=== PATIENT | female | born 1995 | race African-American/Black ===

== ENCOUNTER 2019-04-11 06:07 | Inpatient (IN) ==
[2019-04-11] MEDS ORDERED: MEPERIDINE 50 MG/1 ML VIAL IV PRN (07:39)
[2019-04-11] MEDS ORDERED: ONDANSETRON 4 MG/2 ML VIAL IV PRN (07:39)
[2019-04-11] MEDS ORDERED: BUTORPHANOL 2 MG/ML VIAL IV PRN (07:39)
[2019-04-11 07:57] LABS: Hematocrit 37.9 VOL% (35.7-47.0); Hemoglobin 12.6 GM/DL (12.0-16.0); Red Blood Count 4.38 MC/CUMM (3.8-5.5); White Blood Count 10.4 T/CUMM (4-12)
[2019-04-11 07:58] LABS: Basophils % 0.2 % (0.0-0.8); Eosinophils # 0.1 10*3/uL (0.0-0.87); Eosinophils % 0.5 % (0.00-10.9); Immature Granulocytes % 1.8 %; Immature Granulocytes Absolute 0.19 #; Lymphocytes # 1.8 10*3/uL (1.4-4.0); Lymphocytes % 17.1 % (21.3-54.2); Mean Corpuscular HGB Conc 33.2 GM/DL (32-36); Mean Corpuscular Volume 86.5 FL (87-102); Mean Platelet Volume 10.4 FL (9.6-12.0); Monocytes % 9.8 % (1.7-12.7); Neutrophils % 70.6 % (38.7-73.9); Platelet Count 236 T/CUMM (130-400); Red Cell Distribution Width 12.8 % (9.3-17.3)
[2019-04-11 08:23] LABS: Alanine Aminotransferase 15 U/L (13-56); Albumin 2.5 G/DL (3.4-5.0); Alkaline Phosphatase 125 U/L (45-117); Aspartate Amino Transferase 11 U/L (0-37); Bilirubin,Total < 0.39 MG/DL (0.2-1.0); Blood Urea Nitrogen 7 MG/DL (7-18); Calcium 9.1 MG/DL (8.5-10.1); Estimated Glom Filtration Rate 183 ML/MIN; Glucose 100 MG/DL (74-106); Osmolality,Calculated 267.1 MOS/KG (273-304); Total Protein 7.7 G/DL (6.4-8.3)
[2019-04-11] MEDS ORDERED: LACTATED RINGERS 1,000 ML IV ONE (18:48)
[2019-04-11] MEDS ORDERED: OXYTOCIN/LR 20 UNIT/1,000 ML BAG IV ONE ×2 (19:35→23:04)
[2019-04-11] MEDS ORDERED: CITRIC ACID/SODIUM CITRATE 30 ML UDCUP PO ONE (19:35)
[2019-04-11] MEDS ORDERED: FAMOTIDINE 20 MG/2 ML VIAL IV ONE (19:35)
[2019-04-11] MEDS ORDERED: ceFAZolin 3,000 MG in SYRINGE 1 EACH IV ONE (19:36)
[2019-04-11] MEDS ORDERED: LACTATED RINGERS 1,000 ML IV SCH ×2 (20:00→22:00)
[2019-04-11] MEDS ORDERED: BUPIVACAINE 0.5% 50 ML VIAL ONE (20:19)
[2019-04-11] MEDS ORDERED: BUPIVACAINE SPINAL 0.75% 2 ML AMP SPINAL ONE (20:19)
[2019-04-11] MEDS ORDERED: DEXAMETHASONE 4 MG/1 ML VIAL ONE (20:19)
[2019-04-11] MEDS ORDERED: EPINEPHrine 1 MG/ML VIAL ONE (20:19)
[2019-04-11] MEDS ORDERED: METHYLERGONOVINE 0.2 MG/1 ML AMP IM ONE (21:20)
[2019-04-11] MEDS ORDERED: METHYLERGONOVINE 0.2 MG/1 ML AMP ONE (21:20)
[2019-04-11] MEDS ORDERED: CARBOPROST TROMETHAMINE 250 MCG/ML AMP IM ONE (21:21)
[2019-04-11] MEDS ORDERED: RHO(D) IMMUNE GLOBULIN 300 MCG SYRINGE IM ONE (21:52)
[2019-04-11] MEDS ORDERED: ACETAMINOPHEN 325 MG TABLET PO PRN (21:52)
[2019-04-11] MEDS ORDERED: ceFAZolin 1,000 MG in SYRINGE 1 EACH IV SCH (22:00)
[2019-04-11] MEDS ORDERED: fentaNYL 100 MCG/2 ML VIAL ONE (22:18)
[2019-04-11] MEDS ORDERED: MORPHINE 10 MG/10 ML VIAL ONE (22:18)
[2019-04-11] MEDS ORDERED: PHENYLEPHRINE 1 MG/10 ML SYRINGE IV ONE (22:19)
[2019-04-11] MEDS ORDERED: LIDOCAINE 2% 5 ML VIAL ONE (22:22)
[2019-04-11 22:43] LABS: Apearance,Urine CLEAR (Clear); Bilirubin,Urine Negative (Negative); Blood, Urine Negative (Negative); Glucose,Urine (UA) Negative (Negative); Ketones,Urine Negative (Negative); Mucus,Urine Occasional /LPF (Occasional); Nitrite,Urine Negative (Negative); Protein,Urine Negative; RBC,Urine <1 /HPF (0-4); Squamous Epithelial Cell,Urine Occasional /HPF (0-10); Urine Color Yellow (Yellow); Urine Specific Gravity 1.024 (1.001-1.035); WBC,Urine <1 /HPF (0-6)
[2019-04-12] MEDS: diphenhydrAMINE 50 MG/1 ML VIAL IV PRN ×2 (04:06→09:23)
[2019-04-12] MEDS: oxyCODONE/ACETAMINOPHEN 5-325 MG TABLET PO PRN ×3 (05:13→18:42)
[2019-04-12 05:18] LABS: Basophils % 0.1 % (0.0-0.8); Eosinophils % 0.1 % (0.00-10.9); Hematocrit 36.7 VOL% (35.7-47.0); Hemoglobin 12.1 GM/DL (12.0-16.0); Immature Granulocytes % 1.2 %; Lymphocytes # 1.1 10*3/uL (1.4-4.0); Lymphocytes % 6.7 % (21.3-54.2); Mean Corpuscular Volume 87.4 FL (87-102); Mean Platelet Volume 10.6 FL (9.6-12.0); Monocytes % 6.9 % (1.7-12.7); Platelet Count 226 T/CUMM (130-400); Red Cell Distribution Width 12.9 % (9.3-17.3); White Blood Count 16.6 T/CUMM (4-12)
[2019-04-12] MEDS: ceFAZolin 1,000 MG in SYRINGE 1 EACH IV SCH ×2 (06:14→14:50)
[2019-04-12] MEDS: MULTIVITAMIN (PRENATAL) TABLET PO SCH (08:32)
[2019-04-12] MEDS: DOCUSATE SODIUM 100 MG CAPSULE PO SCH ×2 (08:32→21:03)
[2019-04-12] MEDS ORDERED: ceFAZolin 1,000 MG in SYRINGE 1 EACH IV SCH (15:00)
[2019-04-12] MEDS: SIMETHICONE CHEW 80 MG TABLET PO PRN (21:03)
[2019-04-12] MEDS: MAGNESIUM HYDROXIDE SUSP 30 ML UDCUP PO PRN (21:03)
[2019-04-13] MEDS: IBUPROFEN 800 MG TABLET PO PRN ×2 (02:25→14:23)
[2019-04-13] MEDS: oxyCODONE/ACETAMINOPHEN 5-325 MG TABLET PO PRN ×2 (02:25→14:26)
[2019-04-13] MEDS: MULTIVITAMIN (PRENATAL) TABLET PO SCH (09:32)
[2019-04-13] MEDS: MAGNESIUM HYDROXIDE SUSP 30 ML UDCUP PO PRN ×2 (09:32→22:14)
[2019-04-13] MEDS: DOCUSATE SODIUM 100 MG CAPSULE PO SCH ×2 (09:32→22:14)
[2019-04-13] MEDS: SIMETHICONE CHEW 80 MG TABLET PO PRN (09:32)
[2019-04-14 07:08] VITALS: BP 90/46
[2019-04-14] MEDS: MULTIVITAMIN (PRENATAL) TABLET PO SCH (08:41)
[2019-04-14] MEDS: DOCUSATE SODIUM 100 MG CAPSULE PO SCH (08:41)
== END 2019-04-14 13:05 | disposition home or self-care (01) | DRG 540 ==
LOC: N.LDOUT 06:07 → N.LD 06:36 → N.OB 04-12 02:39
PROVIDERS: ADMIT Obstetrics & Gynecology; ATTEND Obstetrics & Gynecology
PROC: LDCSECT (ICD-10-PCS; 2019-04-11 20:15)